=== PATIENT | female | born 1965 | race African-American/Black ===

== ENCOUNTER 2016-07-30 16:10 | Emergency (ER) | payer MEDICAID, OTHER ==
[~2016-07-30] VITALS: Ht 167.6 cm; Wt 68.0 kg
[~2016-07-30 16:10] MED LIST: BENAZEPRIL HCL20 MG ORAL; HYDROCHLOROTHIA25 MG ORAL; I-PRIN200 MG PO; IBUPROFEN600 MG PO; NORCO 5-325 TA1 EACH ORAL; SOMA350 MG PO; VALIUM5 MG ORAL
[2016-07-30 16:27] VITALS: BP 119/83
[2016-07-30] MEDS ORDERED: Methocarbamol 750mg tab ORAL ONE (16:45)
[2016-07-30] MEDS ORDERED: ROBAXIN-750750 MG PO (17:31)
[2016-07-30] MEDS ORDERED: TYLENOL EXTRA500 MG ORAL (17:31)
[2016-07-30 17:36] VITALS: BP 123/79
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
--- NOTE | 2016-07-31 11:46 | Diagnostic Imaging Report ---
Indication: Back pain Comparison: None Findings: 3 views of the lumbar spine were obtained. No acute fracture or malalignment is identified. Vertebral body heights and disk spaces are well maintained. Posterior elements are unremarkable. Impression: No acute findings.
--- NOTE | 2016-08-03 11:37 | Cardiology Report ---
APPROVED REPORT EKG Measurement Heart [id number] Sinus bradycardia with sinus arrhythmia Otherwise normal ECG
== END 2016-07-30 18:00 | disposition home or self-care (01) ==
LOC: EMR 18:00
DX: T14.8 Other injury of unspecified body region (principal); R07.9 Chest pain, unspecified; M25.512 Pain in left shoulder; M54.5 Low back pain; Z88.0 Allergy status to penicillin; I10 Essential (primary) hypertension; R01.1 Cardiac murmur, unspecified; V49.9XXA Car occupant (driver) (passenger) injured in unspecified traffic accident, initial encounter; Y92.410 Unspecified street and highway as the place of occurrence of the external cause; Y99.8 Other external cause status
CPT/HCPCS: 72020; 93005; 99284

== ENCOUNTER 2017-12-19 08:35 | Emergency (ER) | payer MEDICAID, OTHER ==
[~2017-12-19] VITALS: Ht 167.6 cm; Wt 68.0 kg
[~2017-12-19 08:35] MED LIST changes: +ROBAXIN-750750 MG PO; +TYLENOL EXTRA500 MG ORAL
[2017-12-19 09:00] VITALS: BP 105/71
[2017-12-19] MEDS ORDERED: Ketorolac 60mg Inj IM ONE (09:00)
[2017-12-19] MEDS ORDERED: HYDROcodone/Acetamin 10/325 tab ORAL ONE (09:00)
--- NOTE | 2017-12-19 09:00 | Emergency Room Report ---
History of Present Illness General Chief Complaint: Multiple Trauma/Fall Source: Patient Present Illness HPI Patient reports trauma yesterday approximately 6:00 She was walking down her stairs carrying the trash Reports that she has wood floor which is slippery and essentially slipped falling down and hitting her left side Pain is 8 out of 10 localized to the left lower mid axillary rib cage area Denies any abdominal pain Denies any lapse of consciousness Denies any focal weakness However with any movement or touch of the left flank region also causes discomfort Allergies: Coded Allergies: PENICILLINS (Verified Allergy, 07/04/13) Patient History Past Medical History: see triage record Pertinent Family History: none Last Menstrual Period: NA Now: No Reviewed Nursing Documentation: PMH: Agreed; PSxH: Agreed Nursing Documentation-PMH Past Medical History: No History, Except For 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 Hx Hypertension: Yes Hx Pacemaker: No Hx Asthma: No Hx COPD: No Hx Diabetes: No Hx Cancer: No Hx Gastrointestinal Problems: No Hx Dialysis: No Hx Neurological Problems: Yes - HX LEFT KNEE PROBLEMS Hx Cerebrovascular Accident: No Hx Seizures: No Review of Systems All Other Systems: negative except mentioned in HPI Physical Exam Vital Signs Date Time Temp Pulse Resp B/P (MAP) Pulse Ox O2 Delivery O2 Flow Rate FiO2 12/19/17 08:38 97.8 78 16 105/71 95 Room Air 97.9 Sp02 EP Interpretation: reviewed, normal General Appearance: mild distress - In pain Head: normocephalic, atraumatic Eyes: bilateral eye PERRL, bilateral eye EOMI ENT: hearing grossly normal, normal pharynx Neck: full range of motion, supple Respiratory: lungs clear, normal breath sounds Cardiovascular #1: regular rate, rhythm, no edema Gastrointestinal: non tender, soft, no mass Musculoskeletal: other - Tender on palpation lower rib cage mid axillary left side, no ecchymosis Neurologic: alert, oriented x3, responsive Skin: normal color, no rash Lymphatic: no adenopathy Medical Decision Making Diagnostic Impression: Primary Impression: Rib fracture Additional Impression: Breast mass ER Course Given the patient's history and presentation given the acute discomfort CT imaging is obtained There is evidence of left-sided ninth rib fracture consistent with the patient' s location of pain patient remains hemodynamically stable there are no signs of any internal solid organ injury CT also read some inflammation around the cardiac region patient appears in appropriate respirations does not have any chest pain complaint Incidental finding in the right breast area is also made with mass, patient is notified provided copy with the CT and the need for close follow-up At this time pain control was initiated and patient requires close follow-up Return instructions with increased pain or any difficulty is provided CT/MRI/US Diagnostic Results CT/MRI/US Diagnostic Results : Impression CT chestImpression: Positive for nondisplaced left 11th rib fracture. Minimal associated soft tissue contusion and possibly minimal subjacent pulmonary contusion or atelectasis 7 mm opacity in the lower inner quadrant of the right breast. Further mammographic and sonographic evaluation is recommended Trace anterior wall pericardial thickening versus fluid No infiltrates or effusions. Last Vital Signs Date Time Temp Pulse Resp B/P (MAP) Pulse Ox O2 Delivery O2 Flow Rate FiO2 12/19/17 08:38 97.8 78 16 105/71 95 Room Air 97.9 Status: improved Disposition: HOME, SELF-CARE Condition: Improved Scripts Hydrocodone Bit/Acetaminophen 10-325* (NORCO 10-325*) 1 Each Tablet 1 TAB ORAL Q8HR PRN for For Pain, #20 TAB 0 Refills PRN PAIN Prov: Obinna Hastings DO 12/19/17 Acetaminophen With Codeine (T#3) (TYLENOL #3 TAB*) Y Tab 1 TAB ORAL Q8H PRN for For Pain, #12 TAB Prov: Obinna Hastings DO 12/19/17 Ibuprofen* (MOTRIN*) 600 Mg Tablet 600 MG ORAL Q8H PRN for For Pain, #30 TAB 0 Refills Prov: Obinna Hastings DO 12/19/17 Additional Instructions: Patient is provided with the discharge instructions notified to follow up with primary doctor in the next 2-3 days otherwise return to the er with any worsening symptoms. Please note that this report is being documented using [employer] technology. This can lead to erroneous entry secondary to incorrect interpretation by the dictating instrument. Obinna Hastings DO Dec 19, 2017 09:00
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
[2017-12-19] MEDS ORDERED: ACETAMINOPHEN-1 EAC1 ORAL (10:49)
[2017-12-19] MEDS ORDERED: IBUPROFEN600 MG ORAL (10:49)
[2017-12-19] MEDS ORDERED: NORCO 10-325 T1 EACH ORAL (11:03)
[2017-12-19] MEDS ORDERED: traMADol 50mg tab ORAL ONE (11:30)
[2017-12-19 11:35] VITALS: BP 107/75
== END 2017-12-19 11:35 | disposition home or self-care (01) ==
LOC: EMR 09:16
DX: S22.32XA Fracture of one rib, left side, initial encounter for closed fracture (principal); W01.0XXA Fall on same level from slipping, tripping and stumbling without subsequent striking against object, initial encounter; Y92.9 Unspecified place or not applicable; N63.0 Unspecified lump in unspecified breast; I10 Essential (primary) hypertension; Z88.0 Allergy status to penicillin
CPT/HCPCS: 71250; 96372; 99284

== ENCOUNTER 2018-04-19 21:53 | Emergency (ER) | payer MEDICAID ==
[~2018-04-19] VITALS: Ht 167.6 cm; Wt 68.0 kg
[~2018-04-19 21:53] MED LIST changes: +ACETAMINOPHEN-1 EAC1 ORAL; +IBUPROFEN600 MG ORAL; +NORCO 10-325 T1 EACH ORAL
[2018-04-19 22:00] VITALS: BP 124/74
--- NOTE | 2018-04-19 22:24 | Emergency Room Report ---
History of Present Illness General Chief Complaint: Chest Pain Source: Patient Present Illness HPI Patient present with complaints of left-sided chest pain ongoing for the past several days patient reports that she is also having pain to her left arm left side of her body and general also developed headaches Patient reports that she make contact with her nursing officer and has appointment next week however given the 3 day duration she was concerning came to the ER Denies any focal weakness denies any neck pain or photophobia pain is a heaviness 5 out of 10 Allergies: Coded Allergies: PENICILLINS (Verified Allergy, 07/04/13) Patient History Past Medical History: see triage record Pertinent Family History: none Now: No Reviewed Nursing Documentation: PMH: Agreed; PSxH: Agreed Nursing Documentation-PMH 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 Hx Hypertension: Yes Hx Pacemaker: No Hx Asthma: No Hx COPD: No Hx Diabetes: No Hx Cancer: No Hx Gastrointestinal Problems: No Hx Dialysis: No Hx Neurological Problems: Yes - HX LEFT KNEE PROBLEMS Hx Cerebrovascular Accident: No Hx Seizures: No Review of Systems All Other Systems: negative except mentioned in HPI Physical Exam Vital Signs Date Time Temp Pulse Resp B/P (MAP) Pulse Ox O2 Delivery O2 Flow Rate FiO2 04/19/18 21:57 98.1 52 18 139/86 98 Room Air Sp02 EP Interpretation: reviewed, normal General Appearance: well appearing, no apparent distress Head: normocephalic, atraumatic Eyes: bilateral eye PERRL, bilateral eye EOMI ENT: hearing grossly normal, normal pharynx, TMs + canals normal, uvula midline Neck: full range of motion, supple, no meningismus, no bony tend Respiratory: lungs clear, normal breath sounds, no rhonchi, no respiratory distress, no retraction, no accessory muscle use Cardiovascular #1: normal peripheral pulses, regular rate, rhythm, no edema, no gallop, no JVD, no murmur Gastrointestinal: normal bowel sounds, non tender, soft, no mass, no organomegaly, non-distended, no guarding, no hernia, no pulsatile mass, no rebound Genitourinary: no CVA tenderness Musculoskeletal: normal inspection Neurologic: oriented x3, responsive, tire design engineer III-XII nml as tested, motor strength/ tone normal, sensory intact Psychiatric: mood/affect normal Skin: normal color, no rash, warm/dry, palpation normal Lymphatic: normal inspection, no adenopathy Medical Decision Making Diagnostic Impression: Primary Impression: Chest pain ER Course Patient is a fairly complex patient with multiple differential to consideration including but not limited to cardiac cardiopulmonary and vascular emergencies Patient's EKG is normal blood work at baseline levels The exact etiology of the patient's presentation is nonspecific however does not appear to be cardiac related Patient's cardiac scoring is low Pulmonary embolism scoring is low as well Patient resting comfortably however reports that she has significant discomfort Was given pain medicine here and is stable for close follow-up Labs Test 04/19/18 22:40 White Blood Count 6.0 K/UL (4.8-10.8) Red Blood Count 4.56 M/UL (4.20-5.40) Hemoglobin 13.8 G/DL (12.0-16.0) Hematocrit 40.6 % (37.0-47.0) Mean Corpuscular Volume 89 FL (80-99) Mean Corpuscular Hemoglobin 30.2 PG (27.0-31.0) Mean Corpuscular Hemoglobin Concent 33.9 G/DL (32.0-36.0) Red Cell Distribution Width 12.1 % (11.6-14.8) Platelet Count 123 K/UL (150-450) Mean Platelet Volume 8.1 FL (6.5-10.1) Neutrophils (%) (Auto) % (45.0-75.0) Lymphocytes (%) (Auto) % (20.0-45.0) Monocytes (%) (Auto) % (1.0-10.0) Eosinophils (%) (Auto) % (0.0-3.0) Basophils (%) (Auto) % (0.0-2.0) Differential Total Cells Counted 100 Neutrophils % (Manual) 36 % (45-75) Lymphocytes % (Manual) 54 % (20-45) Monocytes % (Manual) 7 % (1-10) Eosinophils % (Manual) 2 % (0-3) Basophils % (Manual) 1 % (0-2) Band Neutrophils 0 % (0-8) Platelet Estimate Decreased Platelet Morphology Normal Red Blood Cell Morphology Normal Sodium Level 137 MMOL/L (136-145) Potassium Level 3.2 MMOL/L (3.5-5.1) Chloride Level 102 MMOL/L (98-107) Carbon Dioxide Level 25 MMOL/L (21-32) Anion Gap 10 mmol/L (5-15) Blood Urea Nitrogen 17 mg/dL (7-18) Creatinine 0.8 MG/DL (0.55-1.30) Estimat Glomerular Filtration Rate > 60 mL/min (>60) Glucose Level 106 MG/DL (74-106) Calcium Level 9.1 MG/DL (8.5-10.1) Total Bilirubin 0.3 MG/DL (0.2-1.0) Aspartate Amino Transf (AST/SGOT) 19 U/L (15-37) Alanine Aminotransferase (ALT/SGPT) 26 U/L (12-78) Alkaline Phosphatase 59 U/L (46-116) Total Creatine Kinase 111 U/L (26-308) Creatine Kinase MB 0.5 NG/ML (0.0-3.6) Creatine Kinase MB Relative Index 0.4 Troponin I 0.000 ng/mL (0.000-0.056) Pro-B-Type Natriuretic Peptide 21 pg/mL (0-125) Total Protein 8.5 G/DL (6.4-8.2) Albumin 3.8 G/DL (3.4-5.0) Globulin 4.7 g/dL Albumin/Globulin Ratio 0.8 (1.0-2.7) EKG Diagnostic Results Rate: bradycardiac Rhythm: other ST Segments: no acute changes Rhythm Strip Diag. Results EP Interpretation: yes Rate: 60 Rhythm: NSR, no PVC's, no ectopy Chest X-Ray Diagnostic Results Chest X-Ray Diagnostic Results : Chest X-Ray Ordered: Yes Indication: Chest Pain EP Interpretation: Yes Interpretation: no consolidation, no effusion, no pneumothorax, no acute cardiopulmonary disease - Mild cardiomegaly Impression: No acute disease Electronically Signed by: Obinna Hastings DO Last Vital Signs Date Time Temp Pulse Resp B/P (MAP) Pulse Ox O2 Delivery O2 Flow Rate FiO2 04/19/18 22:00 5 18 Room Air 04/19/18 22:00 98.1 124/74 98 Status: improved Disposition: HOME, SELF-CARE Condition: Improved Scripts Ibuprofen* (MOTRIN*) 600 Mg Tablet 600 MG ORAL Q8H PRN for For Pain, #20 TAB 0 Refills Prov: Obinna Hastings DO 04/20/18 Additional Instructions: Patient is provided with the discharge instructions notified to follow up with primary doctor in the next 2-3 days otherwise return to the er with any worsening symptoms. Please note that this report is being documented using [employer] technology. This can lead to erroneous entry secondary to incorrect interpretation by the dictating instrument. Obinna Hastings DO Apr 19, 2018 22:24
[2018-04-19 22:57] LABS: HEMATOCRIT 40.6 % (37.0-47.0); HEMOGLOBIN 13.8 G/DL (12.0-16.0); MEAN CORPUSCULAR VOLUME 89 FL (80-99); PLATELET COUNT 123 K/UL (150-450); RED BLOOD COUNT 4.56 M/UL (4.20-5.40); RED CELL DISTRIBUTION WIDTH 12.1 % (11.6-14.8)
[2018-04-19 23:10] LABS: ANION GAP 10 mmol/L (5-15); BLOOD UREA NITROGEN 17 mg/dL (7-18); CALCIUM 9.1 MG/DL (8.5-10.1); CARBON DIOXIDE 25 MMOL/L (21-32); CHLORIDE 102 MMOL/L (98-107); CREATININE 0.8 MG/DL (0.55-1.30); POTASSIUM 3.2 MMOL/L (3.5-5.1); SODIUM 137 MMOL/L (136-145)
[2018-04-19 23:27] LABS: ALANINE AMINOTRANSFERASE 26 U/L (12-78); ALBUMIN 3.8 G/DL (3.4-5.0); ALBUMIN/GLOBULIN RATIO 0.8 (1.0-2.7); ALKALINE PHOSPHATASE 59 U/L (46-116); ASPARTATE AMINO TRANSFERASE 19 U/L (15-37); BILIRUBIN,TOTAL 0.3 MG/DL (0.2-1.0); CKMB 0.5 NG/ML (0.0-3.6); CREATINE KINASE 111 U/L (26-308)
[2018-04-20] MEDS ORDERED: IBUPROFEN600 MG ORAL (00:05)
[2018-04-20] MEDS: Ketorolac 30mg Inj IV ONE ×2 (00:34→00:37)
[2018-04-20 00:35] VITALS: BP 125/72
--- NOTE | 2018-04-20 09:27 | Diagnostic Imaging Report ---
Indication: Chest pain Technique: One view of the chest Comparison: 10/24/2015 Findings: The lungs and pleural spaces are clear. The heart size is upper limits of normal. There is no significant interim change Impression: Negative
== END 2018-04-20 00:40 | disposition home or self-care (01) ==
LOC: EMR 23:26
DX: R07.9 Chest pain, unspecified (principal); I10 Essential (primary) hypertension
CPT/HCPCS: 36415; 71045; 80053; 82550; 82553; 83880; 84484; 85007; 85025; 93005; 99284